=== PATIENT | female | born 1945 | race Caucasian/White ===

== ENCOUNTER 2016-10-27 03:55 | Inpatient (IN) | payer OTHER ==
[~2016-10-27] VITALS: Ht 154.9 cm; Wt 77.1 kg
[~2016-10-27 03:55] MED LIST: AMBIEN5 M1 PO; ASPIRIN EC81 M1 PO; ATORVASTATIN CA10 M1 PO; BETIMOL5 M1 OU; CELEXA20 M1 PO; COQ1050 MG PO; HYDROCHLOROTH12.5 M2 PO; LUMIGAN2.5 ML OU; MELATONIN3 M4 PO; ULTRAM50 M1 PO
--- NOTE | 2016-10-27 13:13 | Admission Core Measures ---
Admission Meds I reviewed the following Meds: Current Medications Sig/Kat Start time Last Medication Dose Stop Time Status Admin Acetaminophen 975 MG ONCE 10/27 NR (Tylenol) 10/27 2358 Cefazolin Sodium 2,000 MG ONCE 10/27 NR (Kefzol-Ancef Inj) 10/27 2358 Oxycodone HCl 10 MG ONCE 10/27 0000 AC (Roxicodone) 10/27 2358 Acute Coronary Syndrome Inclusion Criteria ACS Diagnosis No Inpatient Core Measures LDL Reminder: If No, please order W/I first 24hr of stay Congestive Heart Failure Inclusion Criteria CHF Diagnosis No Cerebrovascular accident Inclusion Criteria CVA/TIA Diagnosis No Inpatient Core Measures Bedside Swallow Eval Reminder: If BSE failed, place ST order Antithrombotic Reminder: Order Antithrombotic Medication by end of day 2 Antithrombotic Reminder: Document Reason Antithrombotic Not ordered by end of day 2 AFIB/Flutter Reminder: If Present, add to problem list AFIB/Flutter Reminder: Order Anticoag Medication for pts with AFIB/Flutter Atherosclerosis Reminder: If Present, add to problem list LDL Reminder: If No, please order W/I first 24hr of stay PT Order Reminder: If No, please order Venous thromboembolism Inpatient Core Measures VTE Risk Factors: Age > 40, Surgery VTE Prophylaxis Ordered Inpt Mech & Pharm No Mech VTE prophylaxis d/t No contraindications No VTE Pharm Prophylaxis d/t No contraindications Inclusion Criteria - Per Current guidelines, there needs to be overlap - treatment for the first 5 days of Warfarin therapy. - Parenteral Anticoagulation (IV or SC) needs to be - given along with Warfarin therapy. VTE Diagnosis No VTE Type NONE VTE Confirmed by (Test) NONE Problem List As ranked by this Provider includes Assessment & Plan 1. Status post total hip replacement, left HOME MEDS Home Med List Aspirin (Ecotrin*) 81 MG TABLET. 1 TAB PO DAILY HEARTHEALTH (Reported) Atorvastatin Calcium 10 MG TABLET 1 TAB PO DAILY CHOLESTEROL (Reported) Bimatoprost (Lumigan) 0.01 % DROPS 1 GTT OU QPM GLAUCOMA (Reported) Citalopram Hydrobromide (Celexa) 20 MG TABLET 1 TAB PO DAILY ANXIETY ( Reported) Hydrochlorothiazide 12.5 MG TABLET 1 TAB PO DAILY BP (Reported) Melatonin 3 MG TABLET 1 TAB PO QPM SLEEP (Reported) Timolol (Betimol) 0.5 % DROPS 1 GTT OU BID GLAUCOMA (Reported) Tramadol HCl (Ultram) 50 MG TABLET 1 TAB PO Q6P PRN PAIN (Reported) Ubidecarenone (Coq10) 50 MG TAB.CHEW 1 TAB PO D SUPPLEMENT (Reported) Zolpidem Tartrate (Ambien) 5 MG TABLET 0.5 TAB PO QPMP SLEEP (Reported)
[2016-10-27] MEDS ORDERED: MS CONTIN15 M2 PO (13:34)
[2016-10-27] MEDS ORDERED: ASPIRIN325 M2 PO (13:34)
[2016-10-27] MEDS ORDERED: MIRALAX17 G1 PO (13:34)
[2016-10-27] MEDS ORDERED: DILAUDID2 M1 PO (13:34)
[2016-10-27] MEDS ORDERED: COLACE100 M1 PO (13:34)
--- NOTE | 2016-10-27 13:39 | Patient Discharge Instructions ---
Discharge Instructions General Discharge Information You were seen/treated for: Left hip degenerative joint disease You had these procedures: Left total hip arthroplasty Watch for these problems: Significantly increased pain or difficulty ambulating Temperature higher than 101.5 Increased redness or drainage from incision No bath, but you may shower: Yes Other wound care: Daily dry dressing change Special Instructions: See printed information packet Diet Continue normal diet: Yes Activity Activity Self Limited: Yes Pounds, do NOT lift more than: 10 Other activity limits: Ambulate with rolling walker as instructed by physical therapy Acute Coronary Syndrome Inclusion Criteria At DC or during hospital stay patient has or had the following: ACS DIAGNOSIS No Discharge Core Measures Meds if any: Prescribed or Continued at Discharge Meds if any: NOT Prescribed or Continued at Discharge Congestive Heart Failure Inclusion Criteria At DC or during hospital stay patient has or had the following: CHF DIAGNOSIS No Discharge Core Measures Meds if any: Prescribed or Continued at Discharge Meds if any: NOT Prescribed or Continued at Discharge Cerebrovascular accident Inclusion Criteria At DC or during hospital stay patient has or had the following: CVA/TIA Diagnosis No Discharge Core Measures Meds if any: Prescribed or Continued at Discharge Meds if any: NOT Prescribed or Continued at Discharge Venous thromboembolism Inclusion Criteria VTE Diagnosis No VTE Type NONE VTE Confirmed by (Test) NONE Discharge Core Measures - Per Current guidelines, there needs to be overlap - treatment for the first 5 days of Warfarin therapy. - If discharged on Warfarin prior to 5 days of - overlap therapy, the patient will need to be - assessed for post discharge needs including - *Post discharge parental anticoagulation - *Warfarin and/or parental anticoagulation education - *Follow up date to check INR post discharge At least 5 days overlap therapy as Inpatient No Meds if any: Prescribed or Continued at Discharge Note: Overlap Therapy is Warfarin and Anticoagulant Meds if any: NOT Prescribed or Continued at Discharge
--- NOTE | 2016-10-27 13:40 | Surg Short-stay <48hrs Dis Sum ---
Visit Information Visit Dates Admission Date: 10/27/16 Discharge Date: 10/29/16 Surgical Short Stay DC Summary Admission Diagnosis: Left hip degenerative joint disease Final Diagnosis: Same Procedure(s): Left total hip arthroplasty Summary/Significant Findings: The patient was admitted on 10/27/2016. She was brought the operating theater and underwent a left total hip arthroplasty. Postoperatively the patient progressed as expected, her pain is under adequate control, and she ambulated adequately with physical therapy. The patient tolerated diet without nausea and voided postoperatively. The patient was discharged with an uneventful hospital course. Condition at Discharge: Stable Discharge Disposition: home health services Discharge instructions provided to patient/family: Yes Post discharge follow-up plan: Call the office to be seen in 6 weeks or earlier if needed.
--- NOTE | 2016-10-27 16:10 | Operative Report ---
Operative/Inv Procedure Report Surgery Date: 10/27/16 Name of Procedure: Left total hip replacement Pre-Operative Diagnosis: Primary left hip DJD Post-Operative Diagnosis: Same Estimated Blood Loss: 250 Surgeon/Marketing Representative: RICA APONTE,DEMOND Mena Anesthesia: block Operative/Procedure Note Note: Description of Procedure: The patient was taken to the operating room and positively identified. After induction of spinal anesthesia and administration of appropriate pre-operative antibiotics, the patient was positioned supine on the operating room table and all bony prominences were well padded. After performing a surgical timeout, the left lower extremity was prepped and draped in the usual sterile fashion. A direct anterior approach was made to the left hip. The incision was carried sharply through superficial soft tissues to the level of the fascia. Meticulous hemostasis was maintained with Bovie electocautery. The fascia over the tensor fascia linda muscle was opened sharply and the interval between the TFL and the sartorius was entered bluntly taking care to stay lateral to the lateral femoral cutaneous nerve. Retractors were placed around the femoral neck and the pericapsular fat was identified. The ascending branches of the lateral femoral circumflex vessels were identified and carefully coagulated. The pericapsular fat and anterior capsule were then resected. A napkin ring osteotomy was performed and the femoral head was removed without difficulty. Attention was then turned to the acetabulum. After appropriate placement of retractors, the acetabulum was exposed. Soft tissue was cleaned from the acetabular margin and notch. Overhanging osteophytes were removed and the teardrop was exposed. The acetabulum was then sequentially reamed to accept a 52 mm Cheraw Tritanium hemispherical solid back shell. This was impacted into place in the appropriate position and fitted with a 32 mm Trident X3 zero degree polyethylene insert. Attention was then turned to the femur. After performing the appropriate ligament releases, the proximal femur was exposed. It was then sequentially broached to accept a size 3 Cheraw accolade 2 stem. This was trialed for leg length and stability. The trial component was removed and the final component was impacted into place. The trunnion was carefully cleaned and fit with a 32 mm, -4 Biolox delta ceramic femoral head. The hip was reduced and put through a full range of motion and found to be stable. The articular space was then irrigated with sterile saline. The periarticular soft tissues were infilitrated with Marcaine. The fascial layer was closed with interrupted #1 vicryl suture and the skin was re-approximated with interrupted 2 -0 vicryl. The skin was closed with a running 3-0 V-Lock suture. Steri-strips and a sterile dressing were applied. The patient was awakened and taken to the recovery room in satisfactory condition.
--- NOTE | 2016-10-27 17:13 | RADIOLOGY REPORT ---
EXAMINATION: XR HIP, LEFT CLINICAL INFORMATION: Status post left hip replacement. COMPARISON: None TECHNIQUE: Two views of the left hip. FINDINGS: Status post left total hip replacement. Orthopedic components in good position. IMPRESSION: Status post left total hip replacement.
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
[2016-10-27 18:31] VITALS: BP 104/60
[2016-10-27 20:41] VITALS: BP 112/80
[2016-10-27] MEDS ORDERED: PRILOSEC OTC20 M1 PO (22:50)
[2016-10-27 23:30] VITALS: BP 103/65
[2016-10-28 03:32] VITALS: BP 108/66
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
[2016-10-28 08:21] LABS: ABSOLUTE BASOPHIL COUNT 0 /CUMM (0.0-0.2); ABSOLUTE EOSINOPHIL COUNT 0 /CUMM (0.0-0.7); ABSOLUTE GRANULOCYTE CT 12.6 /CUMM (1.4-6.5); ABSOLUTE LYMPH COUNT 1.1 /CUMM (1.2-3.4); ABSOLUTE MONOCYTE COUNT 1.6 /CUMM (0.10-0.60); BASOPHIL % 0 % (0.0-2.0); EOSINOPHIL % 0 % (0-5); GRANULOCYTE % 82.8 % (42.2-75.2); HEMATOCRIT 37.7 % (37-47); MEAN CORPUSCULAR HGB 30.1 PG (27.0-31.0); MEAN CORPUSCULAR HGB CONC 33.8 G/DL (33.0-37.0); MEAN CORPUSCULAR VOLUME 89.3 FL (81.0-99.0); MEAN PLATELET VOLUME 8.9 FL (7.4-10.4); PLATELET COUNT 219 /CUMM (130-400); RBC DISTRIBUTION WIDTH 14.1 % (11.5-14.5); RED BLOOD CELL CT 4.23 /CUMM (4.20-5.40); WHITE BLOOD CELL COUNT 15.2 /CUMM (4.8-10.8)
[2016-10-28 08:41] VITALS: BP 110/60
[2016-10-28 11:45] VITALS: BP 112/58
[2016-10-28 16:06] VITALS: BP 132/76
[2016-10-28 20:00] VITALS: BP 140/80
[2016-10-28 23:26] VITALS: BP 128/72
[2016-10-29 07:43] VITALS: BP 128/82
--- NOTE | 2016-10-29 09:11 | PN- Orthopedic ---
Subjective Subjective: pod#2 s/p left thea comfortable no major complaints denies cp, sob, no n+v with diet Objective Vital Signs and I&Os Vital Signs Date Time Temp Pulse Resp B/P Pulse O2 O2 Flow FiO2 Ox Delivery Rate 10/29 0743 98.9 85 20 128/82 96 Room Air / 2326 99.2 79 20 128/72 94 Room Air 10/28 2000 98.7 68 20 140/80 93 Room Air 10/28 1606 98.6 71 19 132/76 96 10/28 1145 98.2 78 18 112/58 95 Room Air Room Air Intake & Output / 1600 10/29 0800 10/29 0000 10/28 1600 10/28 0800 10/28 0000 Intake Total 120 800 855 780 Output Total 100 450 750 750 725 Balance 20 -450 50 105 55 Intake, IV 615 300 Intake, Oral 120 800 240 480 Number 1 Bowel Movements Output, Urine 100 450 750 750 725 Patient 170 lb Weight Physical Exam: cv: rrr lungs: clear abd: soft, +bs ext: drsg changed, wound c/d/i no calf tenderness bilat distal cms intact Assessment/Plan Assessment/Plan ortho stable plan cont oob with pt/stairs once cleared by pt, d/c home Core Measures/Miscellaneous Venous Thromboembolism VTE Risk Factors: Age > 40, Obesity, Surgery VTE Contraindications: No Contraindications VTE Prophylaxis Ordered Inpt: Mech & Pharm VTE Diagnosis: No VTE Type: NONE VTE Confirmed by (Test): NONE Beta Kai Is Beta Kai a Home Med? No Antibiotics Is Patient on Antibiotics? Yes
== END 2016-10-29 12:30 | disposition home health service (06) | DRG 470 ==
LOC: ENRESERVTM → ENRESERVDT → ENPENDDIS 03:55 → SDA 03:55 → 2NB 18:02
PROVIDERS: Physician Assistant Surgical; ADMIT Orthopaedic Surgery
PROC: 0SRB04A Replacement of Left Hip Joint with Ceramic on Polyethylene Synthetic Substitute, Uncemented, Open Approach (ICD-10-PCS; principal; 2016-10-27)
DX: M16.12 Unilateral primary osteoarthritis, left hip (principal); I10 Essential (primary) hypertension; K21.9 Gastro-esophageal reflux disease without esophagitis; H40.9 Unspecified glaucoma; R73.03 Prediabetes; E78.00 Pure hypercholesterolemia, unspecified; E78.5 Hyperlipidemia, unspecified
CPT/HCPCS: 2NBP; 2NBSP; 73502-LT; 82436; 88304; 97110-GO; 97116-GO; 97161-GP; 97530-GO; J0131; J0690; J0735; J2405; J7042